=== PATIENT | male | born 1955 | race Caucasian/White ===

== ENCOUNTER 2016-09-24 17:13 | Inpatient (IN) ==
--- NOTE | 2016-09-24 17:36 | EKG Report ---
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
[2016-09-24] MEDS ORDERED: MORPHINE 2 MG/1 ML SYRINGE IV STA (17:54)
[2016-09-24] MEDS ORDERED: ASPIRIN 325 MG TABLET PO STA (17:54)
[2016-09-24] MEDS ORDERED: NITROGLYCERIN 2% OINT 1 INCH/GM PACK TOP STA (17:54)
[2016-09-24] MEDS ORDERED: SODIUM CHLORIDE 0.9% 500 ML IV STA (17:54)
[2016-09-24] MEDS ORDERED: ALUM/MAG/SIMETH/LIDO VISC 1:1 30 ML BOTTLE PO STA (17:54)
[2016-09-24] MEDS ORDERED: ALBUTEROL/IPRATROPIUM 3 ML NEB RESP TX STA (17:54)
[2016-09-24] MEDS ORDERED: methylPREDNISolone SOD SUC 125 MG/2 ML VIAL IV STA (17:54)
[2016-09-24] MEDS ORDERED: ONDANSETRON 4 MG/2 ML VIAL IV STA (17:54)
--- NOTE | 2016-09-24 18:29 | CT Report ---
Exam: CT scan of brain without contrast Date: 09/24/2016 Indication: Left lower extremity weakness Comparison: None Patient's classification: Emergency department Technical: Images were obtained from the skull base to the vertex without the use of intravenous contrast. Dose reduction was performed with decreasing kv and mA and automated exposure Total DLP: 1042.6 mGy*cm Findings: The brainstem, cerebellum and cerebral hemispheres are intact. The paranasal sinuses are unremarkable. Mastoids are intact. The ventricles are located in normal position without midline shift or mass effect. Small calcification present adjacent to the fourth ventricle The globes and sella are intact. The calvarium is unremarkable. Impression: 1. No acute hemorrhage, infarction or mass effect PROCEDURE INTERPRETED AT [facility] DEPARTMENT OF RADIOLOGY Final Report Signed by: Dr. Mathieu East
--- NOTE | 2016-09-24 18:35 | XRay Report ---
Exam: XR chest 1V Date: 09/24/2016 5:55 PM Indication: Chest pain Comparison: 06/23/2016 Technical: Chest single view AP Findings: External cardiac leads are present. Lateral marginal osteophytes are present. No obvious infiltrate or effusion. Mediastinum is intact. The bony structures are otherwise unremarkable. Heart is normal in size. Impression: 1. No acute cardiomegaly pathology 2. Degenerative spondylosis change thoracic spine PROCEDURE INTERPRETED AT [facility] DEPARTMENT OF RADIOLOGY Final Report Signed by: Dr. Mathieu East
[2016-09-24 18:36] LABS: Basophils % 0.3 % (0.0-0.8); Eosinophils % 0.2 % (0.00-10.9); Hematocrit 45.4 VOL% (42.0-52.0); Hemoglobin 15.5 GM/DL (14.0-18.0); Immature Granulocytes % 0.4 %; Immature Granulocytes Absolute 0.04 #; Lymphocytes # 1.6 10*3/uL (1.4-4.0); Lymphocytes % 15.1 % (21.2-54.2); Mean Corpuscular HGB Conc 34.1 GM/DL (32-36); Mean Corpuscular Hemoglobin 32 PG (27-34); Mean Corpuscular Volume 93.2 FL (87-102); Mean Platelet Volume 9.4 FL (9.6-12.0); Monocytes # 0.9 10*3/uL (0.11-0.8); Monocytes % 8.9 % (1.7-12.7); Neutrophils # 7.9 10*3/uL (1.4-7.4); Neutrophils % 75.1 % (38.7-73.9); Platelet Count 251 T/CUMM (130-400); Red Blood Count 4.87 MC/CUMM (3.8-5.5); Red Cell Distribution Width 14.3 % (9.3-17.3); White Blood Count 10.5 T/CUMM (4-12)
[2016-09-24] MEDS ORDERED: ONDANSETRON 4 MG/2 ML VIAL ONE (18:37)
[2016-09-24] MEDS ORDERED: NITROGLYCERIN 2% OINT 1 INCH/GM PACK TOP ONE (18:37)
[2016-09-24] MEDS ORDERED: ASPIRIN 325 MG TABLET ONE (18:38)
[2016-09-24] MEDS ORDERED: methylPREDNISolone SOD SUC 125 MG/2 ML VIAL ONE (18:38)
[2016-09-24] MEDS ORDERED: ALUM/MAG/SIMETH/LIDO VISC 1:1 30 ML BOTTLE PO ONE (18:38)
[2016-09-24] MEDS ORDERED: MORPHINE 2 MG/1 ML SYRINGE ONE (18:38)
[2016-09-24 18:51] LABS: D-Dimer <= 0.5 MG/L FEU; PT Patient Result 10.8 SECS
[2016-09-24 18:59] LABS: Albumin 4.3 G/DL (3.4-5.0); Magnesium 2.4 MG/DL (1.8-2.4); Osmolality,Calculated 272.7 MOS/KG (273-304); Potassium 3.6 MMOL/L (3.5-5.1); Total Protein 7.4 G/DL (6.4-8.3)
--- NOTE | 2016-09-24 19:22 | Emergency Department Note ---
IAlcira Kasabria, am scribing for, and in the presence of, Ra Gutierrez MD 18:03. IBrenda Charles R, MD, personally performed the services described in this documentation, ascribed by Nikunj Eli in my presence, and it is both accurate and complete 922 . Arrival - Arrival Chief Complaint: Shortness of Breath ED Nursing Triage Note: Brought in by EMS c/o SOB and midsternal chest pain- onset 3 days ago. Reports relief with oxygen. Mode of Arrival: Stretcher Limitations: No Limitations Source: Patient Time Seen by Provider: 09/24/16 17:30 - History of Present Illness HPI Narrative: This is a 61 y/o white male presenting to the ED via EMS from home with c/o right sided chest pain that onset 3 days ago. Pt has a PMHx of COPD and degenerative arthritis. Pt continues to smoke cigarettes daily although is trying to quit. He states he has experienced numbness to his left foot that extends to his left knee, left sided facial numbness and blurred vision in his left eye, and left arm numbness. Pt states this is the first time this has happened to him. The last time his heart was evaluated was in 1999 and the examination was benign. He does not have a PCP because he is in the process of being placed on Medicaid and he is from the [facility]. He describes the chest pain as a dull pain and the left leg pain as a painful sensation but numb. When he called EMS he states he could no longer take the pain. He was near syncopal with standing and states he felt "choked up" in his throat. Pt denies fever, chills, diaphoresis, back pain, and dysuria. Consistency: constant Severity: moderate Allergies/Adverse Reactions: Allergies Allergy/AdvReac Type Severity Reaction Status Date / Time Sulfa (Sulfonamide Allergy RASH Verified 06/23/16 19:17 Antibiotics) Home Medications: Home Medications Medication Instructions Recorded Confirmed Type No Known Home Medications [No 06/23/16 06/23/16 History Known Home Medications] Review of System - Review of System 12 point system: reviewed and no additional remarkable complaints except as stated - Review of System Constitutional: Present: weight loss (chronic ). Absent: chills, fever, weakness Eyes: Present: vision change (left eye blurred vision ) Head/Ears/Nose/Throat: Absent: nasal drainage Respiratory: Absent: cough, wheezing Cardiovascular: Present: chest pain (right sided chest dull pain ), dyspnea on exertion Gastrointestinal: Present: nausea. Absent: abdominal pain, vomiting, diarrhea Genitourinary male: Absent: dysuria Musculoskeletal: Absent: arm pain, back pain, leg pain, neck pain, other Skin: Absent: rash Neurological: Present: weakness, numbness (to left leg, knee, arm, and face ). Absent: headache, confusion, abnormal gait, vertigo Psychiatric: Absent: anxiety Endocrine: Absent: fatigue Hematological/Lymphatic: Absent: easy bleeding Allergic/Immunologic: Absent: facial swelling Medical,Surgical,& Family Hx - Medical History Cardio: History of: Hypertension (not currently taking meds) Psychological: History of: Anxiety Disorders - Social History Smoking Status: Current every day smoker Frequency of Alcohol Use: None Type of Drug Use: None Exam Vital Signs: Vital Signs Temperature 97.0 F L 09/24/16 17:20 Pulse Rate 89 09/24/16 18:19 Respiratory Rate 12 09/24/16 18:19 Blood Pressure 179/106 09/24/16 17:20 O2 Sat by Pulse Oximetry 100 09/24/16 18:19 - General General appearance: alert, in no apparent distress, other (chronic weightloss ) - Head Head exam: Present: atraumatic, normocephalic, normal inspection - Eye Eye exam: Present: normal appearance, PERRL, EOMI - ENT ENT exam: Present: normal exam, normal oropharynx, mucous membranes moist, TM's normal bilaterally, normal external ear exam - Neck Neck exam: Present: normal inspection, full ROM, trachea midline. Absent: tenderness - Chest Chest inspection: Present: normal inspection, symmetric chest wall rise. Absent : tenderness - Respiratory Respiratory exam: Present: rhonchi (bilateral ), wheezes - Cardiovascular Cardiovascular exam: Present: normal rhythm, tachycardia (shaky; anxious ), normal heart sounds. Absent: regular rate - Abdominal Exam Abdominal exam: Present: soft, normal bowel sounds. Absent: distention, tenderness, guarding - Extremities Exam Extremities exam: Present: normal inspection, full ROM, normal capillary refill. Absent: tenderness, pedal edema, calf tenderness - Back Exam Back exam: Present: normal inspection, full ROM. Absent: tenderness - Neurological Exam Neurological exam: Present: alert, oriented X3, CN II-XII intact, normal gait, reflexes normal, other (subtle left sided weakness ) - Psychiatric Psychiatric exam: Present: normal affect, normal mood - Skin Skin exam: Present: warm, dry, intact, normal color, other (redness to face from sun exposure ). Absent: rash Course - Consultations Consultation #1: Hospitalist will admit patient Time: 19:29 Results - Labs CBC & BMP: 09/24/16 18:28 09/24/16 18:28 Lab Results: I have reviewed the patients labs Disposition Clinical Impression: Acute exacerbation of chronic obstructive airways disease, Chest pain Case discussed with: patient Condition: Stable Time of Disposition: 19:30
[2016-09-24] MEDS ORDERED: MORPHINE 2 MG/1 ML SYRINGE IV PRN (19:31)
[2016-09-24] MEDS ORDERED: ZALEPLON 5 MG CAPSULE PO PRN (19:31)
[2016-09-24] MEDS ORDERED: ONDANSETRON 4 MG/2 ML VIAL IV PRN (19:31)
--- NOTE | 2016-09-24 20:02 | Hospitalist History & Physical ---
<Leslie Mejia - Last Filed: 09/24/16 20:18> Assessment and Plan (1) Acute exacerbation of chronic obstructive airways disease Status: Acute Assessment and plan: Will start corticosteriods and nebulizer treatments. CXR in AM. Current Visit: Yes (2) Chest pain Status: Acute Assessment and plan: We will complete full cardiac work-up. Will obtain echo, venous dopplers, and labs in AM. Serial cardiac enzymes; if positive; will consult cardiology. Current Visit: Yes Qualifiers: Ischemic chest pain type: unspecified angina pectoris type History of Present Illness Chief complaint: "Chest pain and shortness or breath" History of present illness: This is a 61 year-old male that presented to the ED this afternoon per EMS for a chief complaint of shortness of breath and chest pain. He has a medical history of hypertension,chronic obstructive pulmonary disease, nicotine abuse, and degenerative arthritis. In addition he reports a recent diagnosis of degenerative arthritis for which he is attempting to file for disability for. He reports the onset of shortness of breath about 3 days prior to presentation. He reports that the shortness of breath increased upon minimal movement. He also reports a "feeling of numbness" to his left side of his body. He describes it as "painless pressure" to the left side of his face and numbness to his left lower leg. He reports similar episodes of this nature to his left leg in the past. In addition he also reports memory loss and changes in vision to the left eye, but attributed it to his contact lens. Pertinent positives: chest pain, dyspnea, parathesias, vision changes; pertinent negatives: nausea, vomiting, syncope, and vertigo. Upon admission, a full cardiac work-up was performed; which was essentially unremarkable. A preliminary stroke work-up was performed; CT of the brain was negative for any acute intracranial processes and infarcts. Chest radiography revealed no acute cardiomegaly pathology. After further discussion with Dr. Gutierrez, it was determined that the patient would be admitted under the hospitalist services for continuation of care. Home Medications Medication Instructions Recorded Confirmed Type No Known Home Medications [No 06/23/16 06/23/16 History Known Home Medications] Allergies Allergy/AdvReac Type Severity Reaction Status Date / Time Sulfa (Sulfonamide Allergy RASH Verified 06/23/16 19:17 Antibiotics) Medical,Surgical,& Family Hx - Medical History Cardio: History of: Hypertension (not currently taking meds) Psychological: History of: Anxiety Disorders - Social History Smoking Status: Current every day smoker Have you smoked in the last 12 months: Yes Time spent discussing smoking cessation with patient: more than 10 minutes Frequency of Alcohol Use: Occasionally Type of Drug Use: None Marital Status: Single Lives With:: Alone Functional capacity: independent ambulation - Constitutional Constitutional: Present: frequent falls, weakness, weight loss - EENT Eyes: Present: loss of vision (left eye) Ears: Present: as per HPI Nose, mouth and throat: Present: as per HPI - Cardiovascular Cardiovascular: Present: chest pain with activity, dyspnea, dyspnea on exertion , orthopnea - Respiratory Respiratory: Present: cough, dyspnea on exertion - Gastrointestinal Gastrointestinal: Present: early satiety. Absent: constipation, cramping, nausea, vomiting - Genitourinary Genitourinary: Present: as per HPI - Musculoskeletal Musculoskeletal: Present: arthralgias, myalgias - Neurological Neurological: Present: memory loss - Psychiatric Psychiatric: Present: anxiety - Endocrine Endocrine: Present: as per HPI Exam - Constitutional Vitals: Period Temp Pulse Resp BP Sys/Biggs Pulse Ox Last 24 Hr 97.0 F-97.0 F 82-105 12-20 179-179/106-106 100-100 Results - Labs CBC & BMP: 09/24/16 18:28 09/24/16 18:28 Lab Results: I have reviewed the past 24 hour labs Quality Measures - VTE Deep Vein Thrombosis/Pulmonary Embolism Present on Admission: No <[place] - Last Filed: 09/24/16 20:31> Assessment and Plan (1) Acute exacerbation of chronic obstructive airways disease Status: Acute Current Visit: Yes (2) Chest pain Status: Acute Current Visit: Yes Qualifiers: Ischemic chest pain type: unspecified angina pectoris type History of Present Illness History of present illness: Mr. Bonilla is a 61 year old male Exam - Constitutional Exam: Constitutional: Patient in no apparent distress. Thin Eyes: Conjunctivae and lids are normal Pupils equal round react to light and accommodation irises are normal HEENT: External ears and nose without lesions masses or scarring Oropharynx without erythema exudates or thrush Neck is supple without masses no jugular venous distention Lungs: Lungs rhonchi to auscultation and hyperresonant percussion Cardiovascular: Heart auscultation regular rate and rhythm without murmur rub or gallop PMI in the midclavicular line by palpation carotid arteries 2+ without bruits bowel abdomen: Bowel sounds normoactive no masses no rebound or regular tenderness no organomegaly Lymphatic: No anterior posterior cervical or axillary adenopathy Musculoskeletal: No active synovitis no malalignment of the joints good range of motion of upper and lower extremities Skin : normal to inspection and palpation Neurologic: Cranial nerves II through XII intact motor sensory intact DTRs 2+ negative cerebellar signs Psychiatric: Oriented to person place and time normal memory normal mood and affect normal judgment Results - Labs CBC & BMP: 09/24/16 18:28 09/24/16 18:28 - Impressions I have taken a history examined and reviewed the note by nurse practitioner Roberto. This patient came in with shortness of breath weakness and swelling in his left leg and atypical chest pain. He is being admitted for COPD exacerbation treated with steroids antibiotics respiratory therapy I'm going to get some Dopplers of his lower extremities to make sure there is no evidence of DVT. We will obtain a echocardiogram and get serial isoenzymes. I will place place patient on antibiotics I'm concerned that his chest x-ray and may have some volume on it versus an infiltrate and we'll watch him very carefully for volume overload and fever. Discussed smoking cessation with him is not quite ready to pursue that.. Her main semen mechanically stable at this time and can go telemetry to watch his rhythm
[2016-09-24] MEDS ORDERED: ALBUTEROL 2.5 MG/3 ML NEB RESP TX PRN (21:08)
[2016-09-24] MEDS: SODIUM CHLORIDE 0.9% 1,000 ML IV SCH (22:06)
[2016-09-24] MEDS: ENOXAPARIN 40 MG/0.4 ML SYRINGE SUBCUT SCH (22:06)
[2016-09-24] MEDS: CARVEDILOL 3.125 MG TABLET PO SCH (22:10)
[2016-09-24] MEDS: cefTRIAXone 1,000 MG in SODIUM CHLORIDE 0.9% 100 ML IV SCH (22:13)
[2016-09-25] MEDS: ALBUTEROL/IPRATROPIUM 3 ML NEB RESP TX SCH ×4 (01:10→20:22)
[2016-09-25] MEDS: methylPREDNISolone SOD SUC 125 MG/2 ML VIAL IV SCH ×3 (03:07→18:42)
[2016-09-25 03:56] LABS: Hematocrit 42.2 VOL% (42.0-52.0); Immature Granulocytes % 0.3 %; Immature Granulocytes Absolute 0.02 #; Lymphocytes # 0.4 10*3/uL (1.4-4.0); Lymphocytes % 6.9 % (21.2-54.2); Mean Corpuscular HGB Conc 33.2 GM/DL (32-36); Mean Corpuscular Hemoglobin 31 PG (27-34); Mean Corpuscular Volume 93.6 FL (87-102); Mean Platelet Volume 10.4 FL (9.6-12.0); Monocytes # 0.1 10*3/uL (0.11-0.8); Monocytes % 1.3 % (1.7-12.7); Neutrophils # 5.6 10*3/uL (1.4-7.4); Neutrophils % 91.5 % (38.7-73.9); Platelet Count 232 T/CUMM (130-400); Red Blood Count 4.51 MC/CUMM (3.8-5.5); Red Cell Distribution Width 14.2 % (9.3-17.3); White Blood Count 6.1 T/CUMM (4-12)
--- NOTE | 2016-09-25 04:11 | EKG Report ---
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
--- NOTE | 2016-09-25 04:11 | EKG Report ---
Stationary ECG Study [facility] Test Date: 09/25/2016 12:19:52 AM Pat Name: RADHA STERN Department: Room: 282 Gender: M Hospital Orderly: Raymond : 1955 Requested by: Radha Crawford Order Number: [id number] Reading MD: LILIAN ROBBINS Intervals [place] Rate: 75 P: 50 MT: 177 QRS: -53 QRSD: 99 T: 66 QT: 410 QTc: 438 Interpretive Statements SINUS RHYTHM Incomplete right bundle branch block Left axis deviation Electronically Signed On 09-28-16 14:34:40 CDT by LILIAN ROBBINS [id number]
[2016-09-25 04:29] LABS: Hypochromasia 1+; Lymphocytes 9 % (20-55); Platelet Estimate Adequate; Segmented Neutrophils 90 % (50-85); Total Cells Counted 100
[2016-09-25 04:46] LABS: Albumin 3.4 G/DL (3.4-5.0); Bilirubin,Total 1.3 MG/DL (0.2-1.0); Calcium 8.7 MG/DL (8.5-10.1); Magnesium 2.3 MG/DL (1.8-2.4); Osmolality,Calculated 279.7 MOS/KG (273-304); Potassium 4.6 MMOL/L (3.5-5.1); Risk Ratio 2.35; Thyroid Stimulating Hormone 0.144 uIU/ml (0.358-3.74); Total Protein 6.2 G/DL (6.4-8.3)
--- NOTE | 2016-09-25 07:33 | XRay Report ---
History short of breath Comparison 09/24/2016 The heart and vessels are mildly enlarged There are slight increasing diffuse bilateral reticular pulmonary opacities with some minimal patchy and strandy opacities at the left base. No more focal consolidation is seen. Impression: Slight worsening of bilateral infiltrates versus edema PROCEDURE INTERPRETED AT [facility] DEPARTMENT OF RADIOLOGY Final Report Signed by: Dr. Genet Donald
--- NOTE | 2016-09-25 08:30 | Ultrasound Report ---
History lower extremity swelling and short of breath Bilateral lower extremity venous Doppler performed with grayscale, spectral Doppler, and color flow analysis performed and interpreted. No evidence of echogenic, noncompressible thrombus seen in either common femoral, superficial femoral, popliteal, or saphenous veins Impression: No evidence of DVT seen in either lower extremity. PROCEDURE INTERPRETED AT [facility] DEPARTMENT OF RADIOLOGY Final Report Signed by: Dr. Genet Donald
[2016-09-25] MEDS: LISINOPRIL 5 MG TABLET PO SCH (09:10)
[2016-09-25] MEDS: CARVEDILOL 3.125 MG TABLET PO SCH ×2 (09:10→21:05)
[2016-09-25] MEDS: PANTOPRAZOLE 40 MG TABLET PO SCH (09:10)
[2016-09-25] MEDS: ASPIRIN EC 81 MG TABLET PO SCH (09:10)
--- NOTE | 2016-09-25 12:54 | Hospitalist Progress Note ---
Assessment and Plan - Time spent with patient Time spent with patient: Greater than 30 minutes (1) Acute exacerbation of chronic obstructive airways disease Status: Acute Assessment and plan: Continue current management. Current Visit: Yes (2) Pulmonary nodule Status: Acute Assessment and plan: Seen on CT in June. Will ask pulmonary to evaluate. Current Visit: Yes Hospitalist: Subjective Interval history: Patient denies any chest pain and he states he feels much better. No overnight events. Exam - Constitutional Vitals: Period Temp Pulse Resp BP Sys/Biggs Pulse Ox Last 24 Hr 97.2 F-98.2 F 56-91 16-23 126-171/72-94 96-99 General appearance: no acute distress - Head Head exam: Present: normocephalic, atraumatic - Eye Eye exam: Present: EOMI Pupils: Present: RAJANI - ENT ENT exam: Present: normal exam - Neck Neck exam: Present: normal inspection - Respiratory Respiratory exam: Present: clear to auscultation bilaterally, prolonged expiratory phase, other (Dry cough on expiration). Absent: rhonchi, wheezes - Cardiovascular Cardiovascular exam: Present: regular rate and rhythm. Absent: gallop, rubs, systolic murmur - GI/Abdominal GI/Abdominal exam: Present: normal bowel sounds, soft. Absent: distended, firm , guarding, tenderness, rebound - Extremities Exam Extremities exam: Present: normal inspection. Absent: calf tenderness, edema Results - Labs CBC & BMP: 09/25/16 02:57 09/25/16 02:57 Lab Results: I have reviewed the past 24 hour labs Quality Measures - VTE Deep Vein Thrombosis/Pulmonary Embolism Present on Admission: No Specialty Discharge - Follow Up or Referrals
--- NOTE | 2016-09-25 13:47 | Magnetic Resonance Report ---
Referring physician: Mildred Holloway MD Exam: MRI brain without contrast Date: September 25, 2016 Comparison: CT brain without contrast September 24, 2016 Reason: Left body numbness The patient is an inpatient who was admitted on September 24, 2016. Technique: MRI of the brain was performed without the use of contrast. Obtained images include sagittal T1, axial diffusion-weighted, axial FLAIR, axial T2, coronal T2, axial gradient and axial T1 sequences. A 1.5 Kalyn magnet was used. Findings: There are small scattered areas of T2/FLAIR hyperintensity within the cerebral white matter bilaterally. This is nonspecific but is most consistent with mild chronic microvascular ischemic change. Less common considerations include a demyelinating process, viral process or vasculitis. No hydrocephalus or midline shift is present. There is no evidence of recent intracranial hemorrhage, abnormal mass effect or an acute infarction. No abnormal extra-axial fluid collection is identified, and major vascular flow voids are visualized. The orbits, sella and brainstem are unremarkable. The paranasal sinuses and mastoid air cells are clear. Impression: 1. No acute intracranial process is identified. 2. Probable mild chronic microvascular ischemic change. PROCEDURE INTERPRETED AT [facility] DEPARTMENT OF RADIOLOGY Final Report Signed by: Dr. Mayco Vernon
--- NOTE | 2016-09-25 14:49 | Ultrasound Report ---
Exam: US carotid duplex BI Date: 09/25/2016 12:57 PM Indication: TIA shortness of breath Findings: Grayscale color flow analysis and spectral analysis imaging was performed with image stored and captured. Right Flow velocities centimeters per second Common carotid artery: 97 Proximal ICA: 124 Distal ICA: 145 External carotid artery: 191 Vertebral artery: 69 ICA/CCA ratio: 1.5 Measurements in millimeters Distal ICA: 4.6 Left: Flow velocities centimeters per second Common carotid artery: 131 Proximal ICA: 70 Distal ICA: 107 External carotid artery: 149 Vertebral artery: 98 ICA/CCA ratio: 0.8 Measurements in millimeters Distal ICA: 5.1 Mild intimal hyperplasia. No obvious spectral broadening or significant plaque Impression: 1. 16-49% stenosis takeoff of the right ICA 2. 0-15% stenosis left ICA Today studies were performed utilizing indirect NASCET criteria The ultrasound images were stored and captured PROCEDURE INTERPRETED AT [facility] DEPARTMENT OF RADIOLOGY Final Report Signed by: Dr. Mathieu East
[2016-09-25] MEDS: SODIUM CHLORIDE 0.9% 1,000 ML IV SCH (16:30)
[2016-09-25] MEDS: MONTELUKAST 10 MG TABLET PO SCH (16:57)
--- NOTE | 2016-09-25 17:12 | Pulmonology Consult Note ---
History of Present Illness Chief complaint: Abnormal CT of the chest. Acute exacerbation of COPD. History of present illness: Mr. Bonilla is a 61 year old white male whom I been asked to see in pulmonary consultation for evaluation and treatment. I was asked specifically about abnormal CT of the chest it was done in June 2016. Review of systems this patient is loquacious and appears to have it down pat. He has shortness of breath and wheezing cough that is nonproductive of sputum he has had no hemoptysis. He says he has known COPD for the past 10 years. He is continued to smoke up to 2 packs a day until recently and he has cut down to one half a pack of cigarettes per day. He says he got sick around 2016 is been sick ever since then. He goes on to say that his real problem is anxiety and depression. In addition he complains of some anterior chest pain that seems to be associated with taking deep breaths. As best I can tell this patient has had no syncope near syncope TIAs or bleeding from any site. It is hard to asking questions as he proceeds unabated with his symptoms and explanations. He is applied for disability based on his COPD and his arthritis. The remainder the review of systems is negative. Allergies. Sulfonamides. Home medicines. See below Hospital medicines. See below Past history. Degenerative joint disease. COPD. Multiple pulmonary nodules on CT scan of chest. History of high blood pressure but he is not taking any medicines for this. He also gives a history of anxiety disorders Social history. Patient smoked most of his adult life up to 2 packs per day. He says he has cut back to one half pack of cigarettes per day. He says he only drinks occasionally. Note that he was in the emergency room in June 2016 and 1 of the diagnosis was inebriation. Patient denies use of drugs. He says he is single he lives alone. 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 Not obtained. Chest x-ray. 09/25/2016. Heart size is normal. Pulmonary arteries are top normal. There are benign calcifications of both hilar areas. Mediastinum is normal. There is slight increased interstitial markings inferior to the right hilum and inferior inferior to the left hilum. No masses no heart failure. Multiple punctate calcifications in all [address] of the chest done 06/23/2016 has been reviewed. There are multiple tiny nodules in both lung coy. There are calcified. I agree with the radiologist to largest one is slightly less than 6 mm in diameter. The character of these smooth bordered homogeneous nodules in the absolute number of him strongly suggest old scarring. 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 09/25/2016. MRI of the brain. No acute events. CT of the head. 09/24/2016. No acute events. 09/25/2016 Doppler venous studies of the lower extremities show no evidence of deep venous thrombophlebitis. Lumbar spine x-rays done 09/21/2016 showed mild facet hypertrophy. X-rays of the knees done 09/21/2016 showed minor degenerative changes. Microbiology. No reports. Lab. White count is 6191.5 segs. H&H is 14.0 42.2 with normal indices normal red blood cell distribution with. Platelets are 232,000. Electrolytes are normal. Liver function tests are normal. Creatinine is 0.9. BUN is 9. Total protein is low at 6.2 albumin and globulins are normal. TSH is slightly low at 0.144. Labs been reviewed. Medicines been reviewed. Physical exam. Vital signs. See below Psychiatric. Oriented 3. Loquacious. Neuro. Cranial nerves are intact. Long track motor functions intact. Gait was not tested. Pupils irises sclera conjunctiva eyelids are normal. Face is symmetrical. Lips and tongue appear to be normal. Neck. Symmetrical. No meningismus. No masses. Lymphatics. No submandibular cervical supraclavicular or epitrochlear adenopathy. Chest. Large airway wheeze and congestion. Prolonged incomplete expiration. Mild pectus excavatum. Heart. No gallop. I cannot hear murmur Abdomen. Nondistended. Positive bowel sounds. Extremities. No evidence of deep venous thrombophlebitis. No clubbing. Facial skin is erythematous without rash or infection. No other areas of skin were examined. The remainder the physical exam is noncontributory. Impression. 1. CT scan of the chest done 06/23/2016 showing multiple bilateral 5 lobe smooth borders and homogeneous in appearance. These nodules are in various stages of calcification. 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 I see nothing that would suggest a cancer. With this patient's history of tobacco abuse he will always have risk of developing scar carcinoma 2. Acute exacerbation of COPD 3. COPD 4. Tobacco abuse 5. History of anxiety. 6. See past history. Plan. 1. Singulair. 2. Change ventilation therapy to do the nebs 4 times daily and as needed 3. Sputum for Gram stain culture and sensitivity 4. Agree with antibiotics and steroids. 5. We will repeat patient's CT of the chest for comparison. 6. Note the patient told me several times that he has a history of anxiety. He said that is his main problem. Consider treatment. Home Medications Medication Instructions Recorded Confirmed Type No Known Home Medications [No 06/23/16 09/24/16 History Known Home Medications] Allergies Allergy/AdvReac Type Severity Reaction Status Date / Time Sulfa (Sulfonamide Allergy RASH Verified 06/23/16 19:17 Antibiotics) Exam (Pulmonay) H&P - Constitutional Vitals: Period Temp Pulse Resp BP Sys/Biggs Pulse Ox Last 24 Hr 97.2 F-99.3 F 56-91 16-23 126-171/72-94 96-99 Medical,Surgical,& Family Hx - Medical History Cardio: History of: Hypertension (not currently taking meds) Psychological: History of: Anxiety Disorders Rheumatology: History of;: Rheumatoid Arthritis Respiratory: History of: Bronchitis (06/2006), COPD (06/2006 first diagnosed), Pneumonia (12/2006) Genitourinary: History of: Kidney Stones (Summer 1995), Prostate Problems (2016) Gastrointestinal: History of: GERD, Hemorrhoids, Ulcerative Colitis (1974 first dx; Flare up-1974) Musculoskeletal: History of: Back/Neck Problems, Degenerative Disk Disease, Musculoskeletal Problems (pt states "damaged disks/nerve damage") Other: History of: Miscellaneous Medical Problems (Tinea-skin fungus) - Surgical History Cardiac Surgeries: Sugical HX of: Cardiac Catheterization (06/1999) Thoracic Surgeries: Patient denies;: Organ Transplant Abdominal Surgeries: Surgical HX of: Colonoscopy - Family History Family History: Reports;: Family Cancer (maternal/paternal grandparents-breast CA), Family Diabetes (Maternal grandmother), Family Heart Disease (Father), Family Hypertension (Mother/Paternal grandmother), Family Stroke (Father/ maternal grandmother) - Social History Smoking Status: Current every day smoker Frequency of Alcohol Use: Occasionally Type of Drug Use: None Results - Labs CBC & BMP: 09/25/16 02:57 09/25/16 02:57 Quality Measures - VTE Deep Vein Thrombosis/Pulmonary Embolism Present on Admission: No Specialty Discharge - Follow Up or Referrals
--- NOTE | 2016-09-25 17:58 | ECHO Report ---
Ra Bonilla Exam Date: 09/25/2016 13:31 Referring Physician: Technologist: Ana Azar RDCS Age: 61 Ht (in): 70 Wt (lb): 150 Gender: M Exam Location: [facility] Echo Indications: Acute exacerbation COPD, Chest pain, unspecified, Shortness of breath, Essential (primary) hypertension, Left sided numbness, Nicotine dependence, cigarettes, uncomplicated BP: 171 / 89 HR: 85 Rhythm: Sinus Technical Quality: IMPRESSIONS Normal left ventricular cavity size. Normal left ventricular wall thickness. Left ventricular ejection fraction is estimated at 65 %. Grade 1 diastolic dysfunction. Borderline pulmonary hypertension. MEASUREMENTS (Male / Female) Normal Values 2D ECHO LV Diastolic Diameter PLAX 4.8 cm 4.2 - 5.9 / 3.9 - 5.3 cm LV Systolic Diameter PLAX 2.4 cm LV Fractional Shortening PLAX 49.0 % IVS Diastolic Thickness 1.1 cm 0.6 - 1.0 / 0.6 - 0.9 cm LVPW Diastolic Thickness 0.9 cm 0.6 - 1.0 / 0.6 - 0.9 cm RV Internal Dim ED PLAX 2.7 cm Aortic Root Diameter 3.3 cm LA Systolic Diameter LX 3.0 cm 3.0 - 4.0 / 2.7 - 3.8 cm DOPPLER TR Peak Velocity 273.0 cm/s TR Peak Gradient 29.8 mmHg FINDINGS Left Ventricle Normal left ventricular cavity size. Normal left ventricular wall thickness. Left ventricular ejection fraction is estimated at 65 %. Grade 1 diastolic dysfunction. Right Ventricle The right ventricle is normal in size and function. Right Atrium The right atrium is normal in size. Left Atrium The left atrium is normal in size. Mitral Valve Morphologically normal mitral valve. Trace mitral valve regurgitation. Aortic Valve Morphologically normal aortic valve without significant sclerosis or stenosis. There is no aortic regurgitation. Tricuspid Valve Morphologically normal tricuspid valve. Trace to mild tricuspid valve regurgitation. Tricuspid regurgitation velocities suggest a PAP of 40 mmHg. Pulmonic Valve Morphologically normal pulmonic valve without significant stenosis. There is no pulmonic regurgitation. Pericardium Normal pericardium without effusion. Aorta Normal ascending aorta dimension. Tony Darden (Electronically Signed) Final Date: 25 September 2016 17:57
--- NOTE | 2016-09-25 18:13 | CT Report ---
CT chest w con Indication: 61-year-old male, inpatient. History of tobacco use. Pulmonary nodule. Original recommendation 6 month follow-up. CT CHEST WITH CONTRAST DLP: 167 mGy*cm. One or more of the following dose reduction techniques was used: Automated exposure control, adjustment of the mA and/or kV according the patient size, or use of iterative reconstruction techniques. Comparison: 06/23/2016 Technique: Axial CT images of the chest were obtained after the IV administration of Omnipaque 350, 100 cc. Findings: Normal heart size, calcified atheromatous disease of the aorta, and lack of lymphadenopathy again shown. There is some atelectasis or scarring at the lung bases. Paraseptal emphysema is again demonstrated. This includes subpleural changes in the dependent lower lobes consistent with fibrotic scarring. Pleural-based 5 mm pulmonary nodule lateral segment right middle lobe is stable. No new pulmonary nodules are shown. Pleural spaces remain clear. No new bone lesions. 25 mm right thyroid nodule is better seen on the current exam. Limited views of the upper abdomen appear grossly benign. Impression: 1. Stable pleural-based pulmonary nodule lateral segment right middle lobe, 5 mm diameter. 612 month follow-up CT. 2. Emphysematous changes are present. 3. 25 mm right thyroid mass. Consider FNA. PROCEDURE INTERPRETED AT [facility] DEPARTMENT OF RADIOLOGY Final Report Signed by: Jorge Rooney M.D.
[2016-09-25] MEDS: ENOXAPARIN 40 MG/0.4 ML SYRINGE SUBCUT SCH (21:05)
[2016-09-25] MEDS: cefTRIAXone 1,000 MG in SODIUM CHLORIDE 0.9% 100 ML IV SCH (21:05)
[2016-09-26] MEDS: ALBUTEROL/IPRATROPIUM 3 ML NEB RESP TX SCH ×4 (00:29→20:17)
[2016-09-26] MEDS: methylPREDNISolone SOD SUC 125 MG/2 ML VIAL IV SCH ×3 (03:47→18:16)
[2016-09-26 04:25] LABS: Basophils % 0.1 % (0.0-0.8); Hematocrit 38.1 VOL% (42.0-52.0); Hemoglobin 12.8 GM/DL (14.0-18.0); Immature Granulocytes % 0.5 %; Immature Granulocytes Absolute 0.07 #; Lymphocytes # 0.9 10*3/uL (1.4-4.0); Lymphocytes % 6.6 % (21.2-54.2); Mean Corpuscular HGB Conc 33.6 GM/DL (32-36); Mean Corpuscular Hemoglobin 31 PG (27-34); Mean Corpuscular Volume 92.3 FL (87-102); Monocytes % 7.7 % (1.7-12.7); Neutrophils # 11.6 10*3/uL (1.4-7.4); Neutrophils % 85.1 % (38.7-73.9); Platelet Count 224 T/CUMM (130-400); Red Blood Count 4.13 MC/CUMM (3.8-5.5); Red Cell Distribution Width 14.6 % (9.3-17.3); White Blood Count 13.6 T/CUMM (4-12)
[2016-09-26 04:54] LABS: Calcium 8.4 MG/DL (8.5-10.1); Osmolality,Calculated 281.4 MOS/KG (273-304); Potassium 4.2 MMOL/L (3.5-5.1)
[2016-09-26] MEDS: SODIUM CHLORIDE 0.9% 1,000 ML IV SCH ×2 (05:35→21:25)
[2016-09-26] MEDS: LISINOPRIL 5 MG TABLET PO SCH (08:27)
[2016-09-26] MEDS: DOCUSATE SODIUM 100 MG CAPSULE PO PRN (08:27)
[2016-09-26] MEDS: MONTELUKAST 10 MG TABLET PO SCH (08:27)
[2016-09-26] MEDS: PANTOPRAZOLE 40 MG TABLET PO SCH (08:27)
[2016-09-26] MEDS: CARVEDILOL 3.125 MG TABLET PO SCH ×2 (08:27→21:32)
[2016-09-26] MEDS: ASPIRIN EC 81 MG TABLET PO SCH (08:27)
--- NOTE | 2016-09-26 10:53 | Pulmonology Progress Note ---
Pulmonary - PN: Subj Interval history: This is a 61-year-old white male whom I saw in pulmonary consultation on 2016. My impressions were. 1. CT scan of the chest done 06/23/2016 showing multiple bilateral 5 lobe smooth borders and homogeneous in appearance. These nodules are in various stages of calcification. 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 I see nothing that would suggest a cancer. With this patient's history of tobacco abuse he will always have risk of developing scar carcinoma 2. Acute exacerbation of COPD 3. COPD 4. Tobacco abuse 5. History of anxiety. 6. See past history. Plan. 1. Singulair. 2. Change ventilation therapy to do the nebs 4 times daily and as needed 3. Sputum for Gram stain culture and sensitivity 4. Agree with antibiotics and steroids. 5. We will repeat patient's CT of the chest for comparison. 6. Note the patient told me several times that he has a history of anxiety. He said that is his main problem. Consider treatment. 09/26/2016. The patient has had a follow-up CT scan of the chest. The previous abnormalities are noted to be unchanged. I believe these are benign. His only risk his scar carcinoma and this is secondary to his tobacco abuse. This CT showed a small mass in the thyroid and fine needle aspiration was recommended. Patient's chest is much clearer today and he says his breathing is better Electrolytes are normal. Creatinine is dropped to 0.8 with a BUN of 15 white count is 13,685 segs. This is probably secondary to his steroids. H&H is 12.8/ 38.1 and platelets are 224,000 TSH is low. I have ordered a free T4 and a free T3 Physical exam. Vital signs. See below. Afebrile Pupils irises sclera conjunctiva eyelids normal. Face is symmetrical. Lips and tongue appear to be normal. Neck. Symmetrical. No meningismus. Lymphatics. No submandibular cervical supraclavicular or epitrochlear adenopathy. Chest. Previously noted large airway wheezes are much better. This is probably a combination of Singulair and Solu-Medrol. He is produced very little sputum. Heart. No gallop Abdomen. Nontender nondistended. Positive bowel sounds Extremities. No edema Psychiatric. Oriented 3 Neurological cranial nerves are intact long track motor functions intact. The remainder the physical exam is noncontributory. Plan. 1. Free T4 and free T3 2. Continue present treatment 3. Consider needle aspiration of thyroid not 4. CT scan of the chest does not support any evidence of cancerous nodules. See my note from 09/26/2016 Exam (Progress Note) - Constitutional Vitals: Period Temp Pulse Resp BP Sys/Biggs Pulse Ox Last 24 Hr 97.6 F-99.3 F 66-88 14-20 110-157/57-84 97-100 Results - Labs CBC & BMP: 09/26/16 04:07 09/26/16 04:07 Specialty Discharge - Follow Up or Referrals
--- NOTE | 2016-09-26 16:45 | Hospitalist Progress Note ---
Assessment and Plan - Time spent with patient Time spent with patient: Greater than 30 minutes (1) Acute exacerbation of chronic obstructive airways disease Status: Acute Assessment and plan: Continue current management. Current Visit: Yes (2) Pulmonary nodule Status: Acute Assessment and plan: Repeat CT reveals unchanged nodules. Appreciate pulmonary assistance. Current Visit: Yes (3) Thyroid mass Status: Acute Assessment and plan: We will ask interventional radiology to perform an ultrasound and fine-needle aspiration of thyroid. Current Visit: Yes (4) TIA (transient ischemic attack) Status: Acute Assessment and plan: Patient's left-sided symptoms may have been a TIA. MRI, echo and carotid ultrasound have been performed. Current Visit: Yes Hospitalist: Subjective Interval history: Patient has no complaints this morning. He states his breathing is much improved. CT scan was performed yesterday which revealed a mass in the thyroid. Exam - Constitutional Vitals: Period Temp Pulse Resp BP Sys/Biggs Pulse Ox Last 24 Hr 97.7 F-99.5 F 63-90 14-22 110-157/57-92 96-100 General appearance: no acute distress - Head Head exam: Present: normocephalic, atraumatic - Eye Eye exam: Present: EOMI Pupils: Present: RAJANI - ENT ENT exam: Present: normal exam - Neck Neck exam: Present: normal inspection - Respiratory Respiratory exam: Present: prolonged expiratory phase, wheezes. Absent: rhonchi - Cardiovascular Cardiovascular exam: Present: regular rate and rhythm. Absent: gallop, rubs, systolic murmur - GI/Abdominal GI/Abdominal exam: Present: normal bowel sounds, soft. Absent: distended, firm , guarding, tenderness, rebound - Extremities Exam Extremities exam: Present: normal inspection. Absent: calf tenderness, edema Results - Labs CBC & BMP: 09/26/16 04:07 09/26/16 04:07 Lab Results: I have reviewed the past 24 hour labs Quality Measures - VTE Deep Vein Thrombosis/Pulmonary Embolism Present on Admission: No Specialty Discharge - Follow Up or Referrals
[2016-09-26] MEDS: cefTRIAXone 1,000 MG in SODIUM CHLORIDE 0.9% 100 ML IV SCH (21:24)
[2016-09-26] MEDS: ENOXAPARIN 40 MG/0.4 ML SYRINGE SUBCUT SCH (21:26)
[2016-09-27] MEDS: ALBUTEROL/IPRATROPIUM 3 ML NEB RESP TX SCH ×4 (01:20→19:47)
[2016-09-27] MEDS: methylPREDNISolone SOD SUC 125 MG/2 ML VIAL IV SCH ×3 (03:21→18:33)
[2016-09-27 05:04] LABS: Hematocrit 39.3 VOL% (42.0-52.0); Immature Granulocytes % 0.4 %; Immature Granulocytes Absolute 0.05 #; Lymphocytes # 0.8 10*3/uL (1.4-4.0); Lymphocytes % 6.6 % (21.2-54.2); Mean Corpuscular HGB Conc 33.1 GM/DL (32-36); Mean Corpuscular Hemoglobin 31 PG (27-34); Mean Corpuscular Volume 94.5 FL (87-102); Mean Platelet Volume 10.1 FL (9.6-12.0); Monocytes # 0.7 10*3/uL (0.11-0.8); Monocytes % 5.8 % (1.7-12.7); Neutrophils # 10.3 10*3/uL (1.4-7.4); Neutrophils % 87.2 % (38.7-73.9); Platelet Count 208 T/CUMM (130-400); Red Blood Count 4.16 MC/CUMM (3.8-5.5); Red Cell Distribution Width 14.4 % (9.3-17.3); White Blood Count 11.8 T/CUMM (4-12)
[2016-09-27 05:38] LABS: Calcium 8.8 MG/DL (8.5-10.1); Osmolality,Calculated 282.3 MOS/KG (273-304); Potassium 4.3 MMOL/L (3.5-5.1)
[2016-09-27] MEDS: CARVEDILOL 3.125 MG TABLET PO SCH ×2 (08:42→21:07)
[2016-09-27] MEDS: MONTELUKAST 10 MG TABLET PO SCH (08:42)
[2016-09-27] MEDS: LISINOPRIL 5 MG TABLET PO SCH (08:42)
[2016-09-27] MEDS: PANTOPRAZOLE 40 MG TABLET PO SCH (08:42)
[2016-09-27] MEDS: ASPIRIN EC 81 MG TABLET PO SCH (08:42)
[2016-09-27] MEDS: DOCUSATE SODIUM 100 MG CAPSULE PO PRN (08:42)
--- NOTE | 2016-09-27 10:29 | Pulmonology Progress Note ---
Pulmonary - PN: Subj Interval history: This is a 61-year-old white male whom I saw in pulmonary consultation on 2016. My impressions were. 1. CT scan of the chest done 06/23/2016 showing multiple bilateral 5 lobe smooth borders and homogeneous in appearance. These nodules are in various stages of calcification. 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 I see nothing that would suggest a cancer. With this patient's history of tobacco abuse he will always have risk of developing scar carcinoma 2. Acute exacerbation of COPD 3. COPD 4. Tobacco abuse 5. History of anxiety. 6. See past history. Plan. 1. Singulair. 2. Change ventilation therapy to do the nebs 4 times daily and as needed 3. Sputum for Gram stain culture and sensitivity 4. Agree with antibiotics and steroids. 5. We will repeat patient's CT of the chest for comparison. 6. Note the patient told me several times that he has a history of anxiety. He said that is his main problem. Consider treatment. 09/26/2016. The patient has had a follow-up CT scan of the chest. The previous abnormalities are noted to be unchanged. I believe these are benign. His only risk his scar carcinoma and this is secondary to his tobacco abuse. This CT showed a small mass in the thyroid and fine needle aspiration was recommended. Patient's chest is much clearer today and he says his breathing is better Electrolytes are normal. Creatinine is dropped to 0.8 with a BUN of 15 white count is 13,685 segs. This is probably secondary to his steroids. H&H is 12.8/ 38.1 and platelets are 224,000 TSH is low. I have ordered a free T4 and a free T3 09/27/2016. Patient's TSH was low. I ordered a free T4 and this is normal I also ordered a free T3 in case we were dealing with T3 type thyroid toxicosis. This is not reported. Electrolytes are normal. CBC is normal. Patient has not submitted the sputum. There are no positive tests for microbiology. His chest continues to improve. He still has a cough with production of only a small amount of sputum. I think will be able to taper his steroids soon. Continue his Singulair. Physical exam. Vital signs. See below. Afebrile Pupils irises sclera conjunctiva eyelids normal. Face is symmetrical. Lips and tongue appear to be normal. Neck. Symmetrical. No meningismus. Lymphatics. No submandibular cervical supraclavicular or epitrochlear adenopathy. Chest. Previously noted large airway wheezes are much better. This is probably a combination of Singulair and Solu-Medrol. He is produced very little sputum. Heart. No gallop Abdomen. Nontender nondistended. Positive bowel sounds Extremities. No edema Psychiatric. Oriented 3 Neurological cranial nerves are intact long track motor functions intact. The remainder the physical exam is noncontributory. Plan. 1. Free T4 and free T3 2. Continue present treatment 3. Consider needle aspiration of thyroid not 4. 09/26/2016 CT scan of the chest does not support any evidence of cancerous nodules. See my note from 09/26/2016 5. 09/27/2016. See today's note Exam (Progress Note) - Constitutional Vitals: Period Temp Pulse Resp BP Sys/Biggs Pulse Ox Last 24 Hr 98.4 F-99.5 F 55-90 16-22 122-174/74-92 96-100 Results - Labs CBC & BMP: 09/27/16 04:42 09/27/16 04:42 Specialty Discharge - Follow Up or Referrals
[2016-09-27] MEDS: SODIUM CHLORIDE 0.9% 1,000 ML IV SCH (16:05)
--- NOTE | 2016-09-27 16:27 | Hospitalist Progress Note ---
Assessment and Plan - Time spent with patient Time spent with patient: Greater than 30 minutes (1) Acute exacerbation of chronic obstructive airways disease Status: Acute Assessment and plan: Continue current management. Current Visit: Yes (2) Pulmonary nodule Status: Acute Assessment and plan: Repeat CT reveals unchanged nodules. Appreciate pulmonary assistance. Current Visit: Yes (3) Thyroid mass Status: Acute Assessment and plan: We will ask interventional radiology to perform an ultrasound and fine-needle aspiration of thyroid. Current Visit: Yes (4) TIA (transient ischemic attack) Status: Acute Assessment and plan: Patient's left-sided symptoms may have been a TIA. MRI, echo and carotid ultrasound have been performed. Current Visit: Yes Hospitalist: Subjective Interval history: No complaints or overnight events. Exam - Constitutional Vitals: Period Temp Pulse Resp BP Sys/Biggs Pulse Ox Last 24 Hr 98.4 F-98.8 F 55-81 16-20 122-177/74-91 96-100 General appearance: no acute distress - Head Head exam: Present: normocephalic, atraumatic - Eye Eye exam: Present: EOMI Pupils: Present: RAJANI - ENT ENT exam: Present: normal exam - Neck Neck exam: Present: normal inspection - Respiratory Respiratory exam: Present: clear to auscultation bilaterally. Absent: rhonchi, wheezes - Cardiovascular Cardiovascular exam: Present: regular rate and rhythm. Absent: gallop, rubs, systolic murmur - GI/Abdominal GI/Abdominal exam: Present: normal bowel sounds, soft. Absent: distended, firm , guarding, tenderness, rebound - Extremities Exam Extremities exam: Present: normal inspection. Absent: calf tenderness, edema Results - Labs CBC & BMP: 09/27/16 04:42 09/27/16 04:42 Lab Results: I have reviewed the past 24 hour labs Quality Measures - VTE Deep Vein Thrombosis/Pulmonary Embolism Present on Admission: No Specialty Discharge - Follow Up or Referrals
[2016-09-27] MEDS: ENOXAPARIN 40 MG/0.4 ML SYRINGE SUBCUT SCH (21:07)
[2016-09-27] MEDS: cefTRIAXone 1,000 MG in SODIUM CHLORIDE 0.9% 100 ML IV SCH (21:08)
[2016-09-28] MEDS: ALBUTEROL/IPRATROPIUM 3 ML NEB RESP TX SCH ×3 (00:23→13:27)
[2016-09-28] MEDS: methylPREDNISolone SOD SUC 125 MG/2 ML VIAL IV SCH ×2 (02:47→11:15)
[2016-09-28 04:47] LABS: Basophils % 0.1 % (0.0-0.8); Hematocrit 38.6 VOL% (42.0-52.0); Hemoglobin 13.2 GM/DL (14.0-18.0); Immature Granulocytes % 0.6 %; Immature Granulocytes Absolute 0.06 #; Lymphocytes # 0.8 10*3/uL (1.4-4.0); Lymphocytes % 8.3 % (21.2-54.2); Mean Corpuscular HGB Conc 34.2 GM/DL (32-36); Mean Corpuscular Hemoglobin 31 PG (27-34); Mean Corpuscular Volume 91.5 FL (87-102); Mean Platelet Volume 10.4 FL (9.6-12.0); Monocytes # 0.7 10*3/uL (0.11-0.8); Monocytes % 6.8 % (1.7-12.7); Neutrophils # 8.1 10*3/uL (1.4-7.4); Neutrophils % 84.2 % (38.7-73.9); Platelet Count 221 T/CUMM (130-400); Red Blood Count 4.22 MC/CUMM (3.8-5.5); Red Cell Distribution Width 14.2 % (9.3-17.3); White Blood Count 9.7 T/CUMM (4-12)
[2016-09-28 05:14] LABS: Calcium 8.3 MG/DL (8.5-10.1); Osmolality,Calculated 282.1 MOS/KG (273-304); Potassium 4.5 MMOL/L (3.5-5.1)
[2016-09-28] MEDS: SODIUM CHLORIDE 0.9% 1,000 ML IV SCH (08:57)
[2016-09-28] MEDS: CARVEDILOL 3.125 MG TABLET PO SCH (08:58)
[2016-09-28] MEDS: LISINOPRIL 5 MG TABLET PO SCH (08:58)
[2016-09-28] MEDS: MONTELUKAST 10 MG TABLET PO SCH (08:58)
[2016-09-28] MEDS: ASPIRIN EC 81 MG TABLET PO SCH (08:58)
[2016-09-28] MEDS: PANTOPRAZOLE 40 MG TABLET PO SCH (08:58)
--- NOTE | 2016-09-28 11:20 | Pulmonology Progress Note ---
Pulmonary - PN: Subj Interval history: Piter Hein, ANP-BC, GNP-BC, acting as scribe for Dr. Mathieu Riojas This is a 61-year-old white male who we saw in initial pulmonary consultation on 09/25/2016. At that time, our impressions were: 1. CT scan of the chest done 06/23/2016 showing multiple bilateral 5 lobe smooth borders and homogeneous in appearance. These nodules are in various stages of calcification. 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 I see nothing that would suggest a cancer. With this patient's history of tobacco abuse he will always have risk of developing scar carcinoma 2. Acute exacerbation of COPD 3. COPD 4. Tobacco abuse 5. History of anxiety. 6. See past history. Plan. 1. Singulair. 2. Change ventilation therapy to do the nebs 4 times daily and as needed 3. Sputum for Gram stain culture and sensitivity 4. Agree with antibiotics and steroids. 5. We will repeat patient's CT of the chest for comparison. 6. Note the patient told me several times that he has a history of anxiety. He said that is his main problem. Consider treatment. 09/26/2016. The patient has had a follow-up CT scan of the chest. The previous abnormalities are noted to be unchanged. I believe these are benign. His only risk his scar carcinoma and this is secondary to his tobacco abuse. This CT showed a small mass in the thyroid and fine needle aspiration was recommended. TSH is low. I have ordered a free T4 and a free T3 09/27/2016. Patient's TSH was low. I ordered a free T4 and this is normal I also ordered a free T3 in case we were dealing with T3 type thyroid toxicosis. This is not reported. Electrolytes are normal. CBC is normal. Patient has not submitted the sputum. There are no positive tests for microbiology. His chest continues to improve. He still has a cough with production of only a small amount of sputum. I think will be able to taper his steroids soon. Continue his Singulair. 09/28/2016. From a pulmonary standpoint the patient continues to do well. He states his breathing is markedly improved since admission. He is for fine- needle aspiration of the thyroid today. Medications have been reviewed. We made no changes. Labs have been reviewed. White count is 9700 with 84.2% segs; H&H 13.2/38.6; platelet count 221,000; creatinine 0.80, BUN 12, electrolytes are normal Exam (Progress Note) - Constitutional Vitals: Period Temp Pulse Resp BP Sys/Biggs Pulse Ox Last 24 Hr 97.8 F-98.6 F 60-71 16-20 149-177/81-95 96-99 Exam: Chest is wheeze free Heart no gallop Abdomen is nontender nondistended; bowel sounds are positive 4 Extremities with nothing to suggest acute deep venous thrombophlebitis Psychiatric oriented 3 Neurologic long-term motor function is intact Plan: This patient is to stay on Singulair indefinitely. At discharge, we would recommend prednisone 10 mg daily for 7 days then 10 mg every other day for 7 doses. He is stable from a pulmonary standpoint. We will sign off. Please reconsult as needed. Results - Labs CBC & BMP: 09/28/16 04:21 09/28/16 04:22 Specialty Discharge - Follow Up or Referrals
[2016-09-28 11:43] VITALS: BP 166/88
--- NOTE | 2016-09-28 14:23 | Discharge Summary ---
Hospital Course - Hospital Course Hospital Course: Mr. Bonilla was admitted for shortness of breath and found to be in COPD exacerbation. He was initiated on steroids IV antibiotics breathing treatments. 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 Furthermore a mass was seen in his thyroid. Unfortunately however the patient has no insurance. I spoke with patient about her findings and how he should proceed. Patient was encouraged to either follow-up as an outpatient at the [facility] which is free or arrange Medicaid. Social work assisted with medication subsidies. By discharge patient met maximum benefit of hospitalization. I spent more than 45 minutes according this discharge. - Time spent with patient Time with patient DS: Greater than 30 minutes Diagnosis - Discharge Diagnosis (1) Acute exacerbation of chronic obstructive airways disease Status: Acute (2) Pulmonary nodule Status: Acute (3) Thyroid mass Status: Acute (4) TIA (transient ischemic attack) Status: Acute Specialty Discharge - Follow Up or Referrals Discharge Plan - Discharge Data Disposition: Disch To Home/Self Care Condition at Discharge: Stable Discharge Diet: advance to your usual diet Activity: resume usual activities as tolerated Hygiene: no restrictions - Discharge Medications New Aspirin EC Tab 81 mg PO DAILY #30 tablet Budesonide/Formoterol 160-4.5 [Symbicort 160-4.5] 2 puff INH BID #1 inhaler Tamsulosin [Flomax] 0.4 mg PO DAILY #30 capsule amLODIPine [Norvasc] 5 mg PO DAILY #30 tablet predniSONE TAB [PredniSONE] 50 mg PO DAILY #2 tablet Levofloxacin Tab [Levaquin Tab] 500 mg PO DAILY #5 tablet - Follow Up or Referral - Forms/Instructions Instructions: Coronary Artery Disease (GEN), Heart Healthy Diet (GEN), Cigarette Smoking and Your Health (GEN), Chronic Obstructive Pulmonary Disease ( DC) Exam - Constitutional Vitals: Period Temp Pulse Resp BP Sys/Biggs Pulse Ox Last 24 Hr 97.8 F-98.7 F 63-72 16-20 149-177/81-95 97-100 General appearance: normal weight, no acute distress - Head Head exam: Present: normal inspection, normocephalic, atraumatic - Eye Eye exam: Present: EOMI Pupils: Present: RAJANI - ENT ENT exam: Present: normal exam - Neck Neck exam: Present: normal inspection - Respiratory Respiratory exam: Present: clear to auscultation bilaterally - Cardiovascular Cardiovascular exam: Present: regular rate and rhythm - GI/Abdominal GI/Abdominal exam: Present: normal bowel sounds - Extremities Exam Extremities exam: Present: normal inspection Discharge Results Procedures and tests throughout hospitalization: Pending Orders 09/25/16 17:13 Sputum Culture and Gram Stain Stat 09/26/16 11:03 Free T3 (Triiodothyronine), S Stat Labs on day of discharge: Labs from last 24 hours 09/28/16 09/28/16 04:22 04:21 WBC 9.7 RBC 4.22 Hgb 13.2 L Hct 38.6 L MCV 91.5 MCH 31 MCHC 34.2 RDW 14.2 Plt Count 221 MPV 10.4 Neut % (Auto) 84.2 H Lymph % (Auto) 8.3 L Mcdonald % (Auto) 6.8 Eos % (Auto) 0.0 Baso % (Auto) 0.1 Neut # (Auto) 8.1 H Lymph # (Auto) 0.8 L Mcdonald # (Auto) 0.7 Eos # (Auto) 0.0 Baso # (Auto) 0.0 Immature Gran % 0.6 Nucleated RBC % 0.0 Immature Gran # 0.06 Nucleated RBCs # 0.00 Sodium 142 Potassium 4.5 Chloride 105 Carbon Dioxide 31 Anion Gap 10.5 BUN 12 Creatinine 0.80 GFR Calculation 103 BUN/Creatinine Ratio 15.00 Glucose 103 Calculated Osmolality 282.1 Calcium 8.3 L DS: Provider Date of admission: 09/24/16 19:30 Primary care physician: . No PCP Attending physician on admission: Mildred Holloway MD Consults: 09/24/16 21:08 Consult to Cardiac Rehabilitation [CONS] Routine Reason for Cardiac Rehabilitation: Risk Factor Modification 09/25/16 12:56 Consult to Physician [CONS] Routine Comment: Pulmonary nodules Consulting Provider: Consult to Specialist Group: Pulmonology When should Consulting Provider be notified: Now Consult Notification Comment: TEXTED TO GENET AT 1310 Discharging clinician: Mildred Holloway MD Expected date of discharge: 09/28/16
== END 2016-09-28 16:06 | disposition home or self-care (01) | DRG 191 ==
LOC: EDUNIT# → EDBD → N.ED 17:13 → N.EDINP 19:30 → N.TELEN 20:42
PROVIDERS: ADMIT Internal Medicine; ATTEND Internal Medicine

== ENCOUNTER 2020-10-17 11:47 | Observation (INO) ==
[2020-10-17 12:52] LABS: Albumin 4.2 G/DL (3.4-5.0); Bilirubin,Total 1.5 MG/DL (0.2-1.0); Calcium 9.4 MG/DL (8.5-10.1); Osmolality,Calculated 265.2 MOS/KG (273-304); Potassium 3.6 MMOL/L (3.5-5.1); Total Protein 7.9 G/DL (6.4-8.2)
[2020-10-17 12:57] LABS: Basophils % 0.3 % (0.0-0.8); Eosinophils % 0.2 % (0.00-10.9); Hematocrit 47.4 VOL% (42.0-52.0); Immature Granulocytes % 0.2 %; Immature Granulocytes Absolute 0.02 #; Lymphocytes # 1.9 10*3/uL (1.4-4.0); Lymphocytes % 21.3 % (21.2-54.2); Mean Corpuscular Volume 89.8 FL (87-102); Mean Platelet Volume 10.3 FL (9.6-12.0); Monocytes % 11.8 % (1.7-12.7); Neutrophils % 66.2 % (38.7-73.9); Platelet Count 292 T/CUMM (130-400); Red Blood Count 5.28 MC/CUMM (3.8-5.5); Red Cell Distribution Width 14.5 % (9.3-17.3); White Blood Count 8.9 T/CUMM (4-12)
[2020-10-17 12:59] LABS: Hemoglobin 16.1 GM/DL (14.0-18.0)
[2020-10-17] MEDS ORDERED: ASPIRIN 325 MG TABLET PO STA (14:07)
[2020-10-17] MEDS: METOPROLOL TARTRATE 5 MG/5 ML VIAL IV SCH ×3 (14:21→14:33)
[2020-10-17 14:47] LABS: Bilirubin,Urine Negative (Negative); Blood, Urine Small mg/dL (Negative); Glucose,Urine (UA) Negative (Negative); Ketones,Urine 20 mg/dL (Negative); Mucus,Urine Occasional /LPF (Occasional); Nitrite,Urine Negative (Negative); Protein,Urine Negative; RBC,Urine 1 /HPF (0-4); Urine Appearance CLEAR (Clear); Urine Color Yellow (Yellow); Urine Specific Gravity 1.008 (1.001-1.035); Urine Urobilinogen < 2.0 EU/DL (0.2-1.0)
[2020-10-17] MEDS ORDERED: hydrALAZINE 20 MG/1 ML VIAL IV STA ×2 (15:02→15:51)
[2020-10-17 15:11] LABS: Barbiturates Screen,Urine Negative (Negative); Benzodiazepines Screen,Urine Negative (Negative); Cannabinoid Screen,Urine Negative (Negative); Opiate Screen,Urine Negative (Negative); Phencyclidine Screen,Urine Negative (Negative)
[2020-10-17] MEDS ORDERED: hydrALAZINE 20 MG/1 ML VIAL IV PRN (16:23)
[2020-10-17] MEDS ORDERED: DEXTROSE 50% 25 GM/50 ML VIAL IV PRN (16:23)
[2020-10-17] MEDS ORDERED: GLUCAGON 1 MG VIAL IM PRN (16:23)
[2020-10-17] MEDS ORDERED: ALBUTEROL/IPRATROPIUM 3 ML NEB RESP TX PRN (16:23)
[2020-10-17] MEDS ORDERED: ONDANSETRON 4 MG/2 ML VIAL IV PRN (16:23)
[2020-10-17] MEDS ORDERED: ACETAMINOPHEN 325 MG TABLET PO PRN (16:23)
[2020-10-17] MEDS ORDERED: ENOXAPARIN 40 MG/0.4 ML SYRINGE SUBCUT SCH (16:30)
[2020-10-17] MEDS: atenoloL 50 MG TABLET PO SCH ×2 (16:50→22:02)
[2020-10-17] MEDS: LOSARTAN 25 MG TABLET PO SCH ×2 (16:50→22:02)
[2020-10-17] MEDS ORDERED: cloNIDine 0.1 MG TABLET PO STA (17:32)
[2020-10-17] MEDS ORDERED: atenoloL 50 MG TABLET PO SCH (21:00)
[2020-10-18 08:06] LABS: Risk Ratio 2.25; Thyroid Stimulating Hormone 0.523 uIU/ml (0.358-3.74); VLDL CHOLESTEROL 25.6 MG/DL
[2020-10-18] MEDS: LOSARTAN 25 MG TABLET PO SCH (08:38)
[2020-10-18] MEDS: atenoloL 50 MG TABLET PO SCH (08:38)
[2020-10-18] MEDS ORDERED: PANTOPRAZOLE 40 MG TABLET PO SCH (09:00)
[2020-10-18] MEDS ORDERED: ASPIRIN EC 81 MG TABLET PO SCH (09:00)
[2020-10-18 12:20] VITALS: BP 159/91
== END 2020-10-18 14:55 | disposition home or self-care (01) ==
LOC: N.EDINP 11:47 → N.ED 11:47 → N.EDINP 19:29 → N.TELES 20:07
PROVIDERS: ADMIT Internal Medicine Geriatric Medicine; ATTEND Internal Medicine Geriatric Medicine